=== PATIENT | female | born 1965 | race Caucasian/White ===

== ENCOUNTER → 2020-03-30 12:42 | Outpatient (CLI) | payer OTHER, SELFPAY ==
--- NOTE | 2020-03-30 12:56 | VDLE_ITS ---
Reason For Study: Swelling RIGHT LEFT CFV is compressible, spontaneous, phasic, CFV is compressible, spontaneous, phasic, competent and demonstrates normal competent, and demonstrates normal augmentation. augmentation. FV is compressible, spontaneous, phasic, FV is compressible, spontaneous, phasic, competent and demonstrates normal competent and demonstrates normal augmentation. augmentation. POP V is compressible, spontaneous, phasic, POP V is compressible, spontaneous, phasic, competent and demonstrates normal competent and demonstrates normal augmentation. augmentation. T/P Trunk is compressible. T/P Trunk is compressible. PTV is compressible. PTV is compressible. RT PerV is compressible. LT PerV is compressible. Right GSV previously stripped. SFJ is INCOMPETENT and measures 0.61 x 0.66 Right ASV from CFV is competent and measures cm. 0.39 x 0.39 cm. GSV proximal thigh measures 0.37 x 0.39 cm. Unable to identify origin of ASV mid thigh. GSV above knee is INCOMPETENT for greater ASV mid thigh is INCOMPETENT for greater than than 0.5 seconds. 0.5 seconds and measures 0.40 x 0.41 cm. GSV at knee measures 0.33 x 0.33 cm. SSV at junction is competent and measures GSV below knee is competent. 0.26 x 0.27 cm. SSV at junction is competent and measures Procedure 0.35 x 0.39 cm. Exam performed in department. Interpretation Summary Deep veins of the lower extremities are bilaterally patent and compressible segmentally. There is no evidence of deep vein thrombosis on either side. Valvular competence appears intact within the proximal deep venous systems bilaterally. The right great saphenous vein is absent due to previous stripping. The left great saphenous vein appears patent and compressible segmentally. The left sapheno-femoral junction is incompetent . The left great saphenous vein appears incompetent above the knee. The left great saphenous vein appears competent below the knee. Small saphenous veins are patent and competent bilaterally. The right accessory saphenous vein in the upper thigh appears competent. The right accessory saphenous vein in the mid-thigh is incompetent, and its origin could not be identified. Ordering Physician: Dexter Miller Referring Physician: Mohan Khan Performed By: Mara Lopez RVT
== END ==
PROVIDERS: PCP Family Medicine; Referring Provider Surgery; Visit Provider Surgery
DX: M79.89 Other specified soft tissue disorders (principal); I83.10 Varicose veins of unspecified lower extremity with inflammation
CPT/HCPCS: 93970